=== PATIENT | female | born 1925 | race Caucasian/White ===

== ENCOUNTER → 2017-04-17 | Outpatient (CLI) | payer MEDICARE, OTHER ==
[~2017-04-17] MED LIST: ADALAT CC60 MG PO; CALTRATE 600600 MG PO; CALTRATE PLUS1 TAB PO; COUMADIN4 MG PO; DUO-KAPS1 CAP PO; EPA FISH OIL1000 MG PO; EPA1000 MG PO; FOLIC ACID0.4 MG PO; GLUCOSAMINE COM1 TA1 PO; HCTZ 25MG TAB25 MG PO; HCTZ PO; IRON50 MG PO; ONE DAILY1 TA2 PO; PREMARIN0.3 MG PO; TENORMIN 2525 MG/TAB PO; TENORMIN25 MG PO; VITAMIN C BUFF500 MG PO
== END ==
LOC: MC.RAD 13:19
DX: Z12.31 Encounter for screening mammogram for malignant neoplasm of breast (principal)